=== PATIENT | male | born 1945 | race Caucasian/White ===

== ENCOUNTER 2016-05-28 07:31 | Outpatient (CLI) | payer MEDICARE, OTHER ==
[~2016-05-28] VITALS: Ht 175.3 cm; Wt 161.9 kg
--- NOTE | ~2016-05-28 | OR ---
PATIENT'S NAME: RO SEO [facility] AGE: 70 Y [address] ROOM: [id number] [place], [place] [address] LOCATION: GPCU ADMIT DATE: 05/28/2016 OR/Procedure Report DISCHARGE DATE: 05/28/2016 FAMILY PHYSICIAN: Marco Alvarado MD ATTENDING PHYSICIAN: DALIA WONG SURGEON: Dalia Wong MD COURTESY CAR DRIVER: DATE OF PROCEDURE: 05/28/2016 PREOPERATIVE DIAGNOSIS: Poorly functioning left arm arteriovenous fistula. 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 SAMPLER TESTER: laborer brush clearing staff. ANESTHESIA: MAC, local. ESTIMATED BLOOD LOSS: 10 mL. OPERATIVE FINDINGS: Main central vein tract occluded. The patient empties his fistula through collateral veins. The veins had a high-grade stenosis, were angioplastied x2. DESCRIPTION OF PROCEDURE: The patient was brought back to the cardiac cath lab manager, placed supine on the cardiac cath lab manager table, and prepped and draped in a sterile manner. Preoperative time-out was performed. We gained access using ultrasound guidance to the left arm brachiocephalic AV fistula. We infiltrated with 1% lidocaine. I used a micropuncture needle, followed by a micropuncture wire, followed by a micropuncture sheath. I exchanged, using Seldinger technique, for a 4-Rwandan sheath, and then we ultimately had to exchange that for a 6-Rwandan sheath later in the case. The patient also received a total of 5000 units of heparin for the case, which was reversed with protamine at the end. We performed a series of fistulograms. The entire fistula itself was patent; however, you could tell that in the central venous portion, the likely main dominant track was occluded. However, it emptied through a large collateral vessel which did not join the axillary vein, and then the axillary vein took back toward the heart. There was a high-grade stenosis at 2 sections during this through this collateral vein. We passed a 3-way wire across this lesion, and then we angioplastied it using first an 8 x 40 and then similarly a 10 x 40 balloon to relieve the stenosis. At the end, the fistula was still slightly pulsatile; however, it did have a much improved thrill and bruit. I think this fistula will still continue to last him for a while due to the large nature of the collateral flow, but he will ultimately, in the future, probably need new access on the other arm. Sheath was removed. PATIENT'S NAME: RO [facility] AGE: 70 Y [address] ROOM: [id number] [place], [place] [address] [facility] ADMIT DATE: 05/28/2016 OR/Procedure Report DISCHARGE DATE: 05/28/2016 FAMILY PHYSICIAN: Marco Alvarado MD ATTENDING PHYSICIAN: DALIA WONG A single 4-0 nylon stitch was placed to achieve hemostasis. The patient tolerated the procedure well and was transferred to the recovery room and allowed to go home later that day. DALIA WONG MD FKM/modl /[id number] d: 05/28/16 1440 t: 05/28/16 1711, OPERATIVE SUMMARY
[~2016-05-28 07:31] MED LIST: AMARYL4 M1 PO; ASPIR 8181 MG PO; B-121000 MCG PO; FISH OIL 1,2001 EACH PO; FLOMAX0.4 MG PO; GENTAMICIN SULF30 GM TOP; JANUVIA25 MG PO; KLONOPIN0.5 M1 PO; LASIX40 M1 PO; LASIX40 MG PO; MULTI-VITAMIN1 EACH PO; MYCOLOG CREAM 330 GM TOP; NEURONTIN100 MG PO; NORVASC10 MG PO; PHOSLO667 MG PO; SENSIPAR 30 MG30 MG PO; SINEMET 25-1001 EACH PO; TOPROL XL 5050 MG PO; ZANTAC150 MG PO
[2016-05-28 08:28] LABS: BASOPHIL # 0.1 K/uL (0.0-0.2); BASOPHIL % 0.9 %; EOSINOPHIL # 0.3 K/uL (0.0-0.5); EOSINOPHIL % 3.3 %; HEMATOCRIT 36.1 % (37.0-53.0); HEMOGLOBIN 11.4 g/dL (11.0-16.0); IMMATURE GRANULOCYTE % 0.4 %; LYMPHOCYTE % 20.7 %; MCH 31.5 pg (27.0-34.0); MCHC 31.6 gm/dL (32.0-36.5); MCV 99.7 fl (83.0-98.0); MONOCYTE # 0.5 K/uL (0.0-1.0); MONOCYTE % 5.7 %; MPV 10.4 fl (9.4-12.4); NEUTROPHIL # (ANC) 6.6 K/uL (1.4-9.0); NRBC % 0 /100WBC (0-0.00); PLATELET COUNT 165 K/uL (150-450); RBC 3.62 M/uL (3.50-5.50); RDW-CV 14.8 % (11.9-14.6); WBC 9.5 K/uL (4.0-11.0)
[2016-05-28 08:42] LABS: ALBUMIN 2.9 gm/dL (3.5-5.0); ANION GAP 15.4 (10.0-19.0); CALCIUM 9.1 mg/dL (8.5-10.5); POTASSIUM 4.4 mMol/L (3.7-5.1); TOTAL BILIRUBIN 0.5 mg/dL (0.0-1.5); TOTAL PROTEIN 7.6 g/dL (6.0-8.4)
[2016-05-28 08:43] LABS: CREATININE 6.5 mg/dL (0.6-1.3)
[2016-10-08] MEDS ORDERED: LOSARTAN POTASS25 MG PO (09:04)
[2016-10-08] MEDS ORDERED: CYCLOBENZAPRINE5 MG PO (09:07)
[2016-10-08] MEDS ORDERED: DULCOLAX5 MG PO (09:08)
[2016-10-08] MEDS ORDERED: COREG12.5 MG PO (09:10)
[2016-10-08] MEDS ORDERED: COLACE100 MG PO (09:11)
[2016-10-08] MEDS ORDERED: IMDUR30 MG PO (09:16)
== END 2016-05-28 11:55 | disposition disaster alternative care site (69) ==
LOC: GPCU 07:31 → GCAT 07:31 → GPOC 08:00 → GCAT 11:55 → GPOC 14:00
PROVIDERS: Surgery Vascular Surgery
PROC: B51NYZZ Fluoroscopy of Left Upper Extremity Veins using Other Contrast (ICD-10-PCS; principal; 2016-05-28)
DX: T82.898A Other specified complication of vascular prosthetic devices, implants and grafts, initial encounter (principal)
CPT/HCPCS: C1725; C1769; J0690; J1644; J2001; J2250; J2720; J3010; J7030

== ENCOUNTER → 2016-06-03 | Outpatient (CLI) | payer MEDICARE, OTHER ==
[~2016-06-03] MED LIST changes: +COLACE100 MG PO; +COREG12.5 MG PO; +CYCLOBENZAPRINE5 MG PO; +DULCOLAX5 MG PO; +IMDUR30 MG PO; +LOSARTAN POTASS25 MG PO
== END | disposition disaster alternative care site (69) ==
LOC: GAMB 10:52
DX: I20.9 Angina pectoris, unspecified (principal); R07.9 Chest pain, unspecified; Z79.82 Long term (current) use of aspirin; Z79.899 Other long term (current) drug therapy
CPT/HCPCS: A0422; A0425; A0427

== ENCOUNTER → 2016-06-24 | Outpatient (CLI) | payer MEDICARE, OTHER | END | disposition disaster alternative care site (69) | LOC: GAMB 06:28 | DX: R55 Syncope and collapse (principal); R10.9 Unspecified abdominal pain | CPT/HCPCS: A0425; A0427; J2405 ==

== ENCOUNTER → 2016-08-20 | Outpatient (CLI) | payer MEDICARE, OTHER | END | disposition disaster alternative care site (69) | LOC: GAMB 21:33 | DX: R51 Headache (principal); E11.22 Type 2 diabetes mellitus with diabetic chronic kidney disease; N18.4 Chronic kidney disease, stage 4 (severe); M79.652 Pain in left thigh; Z79.82 Long term (current) use of aspirin; Z79.899 Other long term (current) drug therapy; W01.0XXA Fall on same level from slipping, tripping and stumbling without subsequent striking against object, initial encounter | CPT/HCPCS: A0425; A0429 ==

== ENCOUNTER → 2016-08-23 | Outpatient (CLI) | payer MEDICARE | END | disposition disaster alternative care site (69) | LOC: GAMB 07:28 | DX: R07.9 Chest pain, unspecified (principal); E11.22 Type 2 diabetes mellitus with diabetic chronic kidney disease; N18.4 Chronic kidney disease, stage 4 (severe); Z79.82 Long term (current) use of aspirin; Z79.899 Other long term (current) drug therapy | CPT/HCPCS: A0422; A0425; A0427 ==

== ENCOUNTER → 2016-08-26 | Outpatient (CLI) | payer MEDICARE, OTHER | END | disposition disaster alternative care site (69) | LOC: GAMB 01:00 | DX: S39.92XA Unspecified injury of lower back, initial encounter (principal); M54.9 Dorsalgia, unspecified; S00.81XA Abrasion of other part of head, initial encounter; S80.212A Abrasion, left knee, initial encounter; S80.211A Abrasion, right knee, initial encounter; Z79.84 Long term (current) use of oral hypoglycemic drugs; Z79.82 Long term (current) use of aspirin; W19.XXXA Unspecified fall, initial encounter | CPT/HCPCS: A0425; A0427; J3010 ==

== ENCOUNTER 2016-10-08 10:39 | Outpatient (CLI) | payer MEDICARE, OTHER ==
[~2016-10-08] VITALS: Ht 175.3 cm; Wt 159.1 kg
--- NOTE | ~2016-10-08 | OR ---
PATIENT'S NAME: RO SEO [facility] AGE: 71 Y [address] ROOM: [address] [address] LOCATION: GPCU ADMIT DATE: 10/08/2016 OR/Procedure Report DISCHARGE DATE: FAMILY PHYSICIAN: Marco Alvarado MD ATTENDING PHYSICIAN: DANIEL WONG SURGEON: Daniel Wong MD PARALEGALS: DATE OF PROCEDURE: 10/08/2016 PREOPERATIVE DIAGNOSIS: Central venous occlusion. POSTOPERATIVE DIAGNOSIS: Central venous occlusion. PROCEDURE PERFORMED: Central vein stenting with iCAST covered stent, 10 x 38. MARKETING DESIGNER: Angelica Don MD. ANESTHESIA: MAC local. ESTIMATED BLOOD LOSS: 10 mL. FINDINGS: Near-occlusion of the central vein re-cannulized and stented with a 10 x 38 covered stent. DESCRIPTION OF PROCEDURE: The patient was escorted to the medical lab scientist, placed supine on the medical lab scientist table, and prepped and draped in a sterile manner. Preoperative time-out was performed. The patient received preoperative antibiotics. We gained access to the fistula on the left arm. Using ultrasound guidance, we infiltrated the skin with 1% lidocaine. We then gained access using a micropuncture needle, followed by a micropuncture sheath, and exchanged it for a 4-Swazi sheath using Seldinger technique. We then gave 5000 units of heparin. We then used the 3-way wire as well as an angled Anderson catheter to cross the central venous near-occlusion. We then gave 5000 units of heparin. We then angioplastied with an 8 x 40 and then finally with a 10 x 40 balloon without relief of the stenosis. This was the second time we were intervening on this stenosis and ultimately placed the 10 x 8 covered stent. We exchanged the 4-Swazi sheath for a 7-Swazi sheath and then deployed this 10 x 8 stent across the level of the stenosis. There was good relief of stenosis and had an excellent flow through the fistula. There was marked decrease pressure in the fistula noted locally at the puncture site. We used a total of 5000 units of heparin which was reversed with protamine. The sheath was removed. A single 4-0 nylon stitch was placed for hemostasis. The patient tolerated the procedure well and was transferred to the recovery room and sent home later that day. PATIENT'S NAME: RO SEO [facility] AGE: 71 Y [address] ROOM: [address] [place], [place] [address] [facility] ADMIT DATE: 10/08/2016 OR/Procedure Report DISCHARGE DATE: FAMILY PHYSICIAN: Marco Alvarado MD ATTENDING PHYSICIAN: DANIEL WONG DANIEL WONG MD FKM/modl /[id number] d: 10/08/16 2344 t: 10/11/16 1230, OPERATIVE SUMMARY
--- NOTE | 2016-10-08 15:19 | NUR ---
d: GOOD BRUIT PALPABLE IN L)UPPER ARM FISTULA.
== END 2016-10-08 16:30 | disposition disaster alternative care site (69) ==
LOC: GCAT 10:39 → GPCU 10:39 → GCAT 16:30
PROC: B51VYZZ Fluoroscopy of Other Veins using Other Contrast (ICD-10-PCS; principal; 2016-10-08)
DX: I82.890 Acute embolism and thrombosis of other specified veins (principal)
CPT/HCPCS: C1725; C1769; C1874; J0690; J1644; J2001; J2720; J3010; J7030

== ENCOUNTER → 2016-10-10 | Outpatient (CLI) | payer MEDICARE, OTHER | END | disposition disaster alternative care site (69) | LOC: GAMB 00:02 | DX: R07.89 Other chest pain (principal); E11.22 Type 2 diabetes mellitus with diabetic chronic kidney disease; N18.4 Chronic kidney disease, stage 4 (severe); Z79.82 Long term (current) use of aspirin; Z79.899 Other long term (current) drug therapy | CPT/HCPCS: A0422; A0425; A0427 ==

== ENCOUNTER → 2016-10-27 | Outpatient (CLI) | payer MEDICARE, OTHER | END | disposition disaster alternative care site (69) | LOC: GAMB 19:27 | DX: R06.00 Dyspnea, unspecified (principal); R06.02 Shortness of breath; I48.91 Unspecified atrial fibrillation; R00.9 Unspecified abnormalities of heart beat; E66.9 Obesity, unspecified; I12.9 Hypertensive chronic kidney disease with stage 1 through stage 4 chronic kidney disease, or unspecified chronic kidney disease; N18.4 Chronic kidney disease, stage 4 (severe); E11.22 Type 2 diabetes mellitus with diabetic chronic kidney disease; Z79.82 Long term (current) use of aspirin; Z79.899 Other long term (current) drug therapy; Z88.5 Allergy status to narcotic agent | CPT/HCPCS: A0422; A0425; A0427; J1940 ==

== ENCOUNTER → 2016-11-13 | Outpatient (CLI) | payer MEDICARE, OTHER | END | disposition disaster alternative care site (69) | LOC: GAMB 05:53 | DX: R07.9 Chest pain, unspecified (principal); I95.9 Hypotension, unspecified; R11.0 Nausea; I12.9 Hypertensive chronic kidney disease with stage 1 through stage 4 chronic kidney disease, or unspecified chronic kidney disease; N18.4 Chronic kidney disease, stage 4 (severe); Z99.2 Dependence on renal dialysis; Z79.01 Long term (current) use of anticoagulants; Z79.82 Long term (current) use of aspirin; Z79.899 Other long term (current) drug therapy ==